=== PATIENT | female | born 2000 | race Hispanic/Latino ===

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

== ENCOUNTER 2021-07-26 20:20 | Emergency (ER) | payer MEDICAID ==
[~2021-07-26] VITALS: Ht 154.9 cm; Wt 118.9 kg
[2021-07-26 20:21] VITALS: BP 78/127
[2021-07-26 20:53] LABS: BASOPHILS % (AUTO) 0.7 % (0.0-5.0); EOSINOPHILS % (AUTO) 1.4 % (0.0-8.0); HEMATOCRIT 35.7 % (36-48); LYMPHOCYTES % (AUTO) 32.1 % (21.0-51.0); MEAN CORPUSCULAR HEMOGLOBIN 25.1 pg (27.0-33.0); MEAN CORPUSCULAR HGB CONC 30.8 g/dL (32.0-36.0); MEAN CORPUSCULAR VOLUME 81.5 fL (80-100); MONOCYTES % (AUTO) 8.6 % (3.0-13.0); PLATELET COUNT (AUTO) 290 K/uL (130-400); RED BLOOD CELL COUNT(AUTO) 4.38 MIL/uL (4.00-5.50); RED CELL DISTRIBUTION WIDTH 13.4 % (11.0-15.5); WHITE BLOOD COUNT (AUTO) 5.9 K/uL (4.8-10.8)
[2021-07-26] MEDS ORDERED: PROMETHAZINE HCL 25 MG/ML 1ML AMPULE IM ONE (21:00)
[2021-07-26] MEDS ORDERED: CYCLOBENZAPRINE HCL 10 MG TABLET PO ONE (21:00)
[2021-07-26] MEDS ORDERED: 0.9% NACL 500ML IV.SOLN 500 ML IV SCH (21:00)
[2021-07-26] MEDS ORDERED: KETOROLAC 30MG VIAL (30MG/ML) IV ONE (21:00)
[2021-07-26 21:01] LABS: CREATININE 0.6 mg/dL (0.5-1.5); POTASSIUM 3.8 mmol/L (3.5-5.1)
[2021-07-26 21:06] LABS: ALBUMIN 3.6 g/dL (3.5-5.0); BILIRUBIN,TOTAL 0.1 mg/dL (0.2-1.0); TOTAL PROTEIN, SERUM 7.5 g/dL (6.0-8.3)
[2021-07-26] MEDS ORDERED: NAPR-1180 PO (21:46)
[2021-07-26] MEDS ORDERED: RIZA10TA23 PO (21:46)
[2021-07-26] MEDS ORDERED: CYCL10TA16 PO (21:46)
== END 2021-07-26 22:06 | disposition home or self-care (01) ==
LOC: EDH 20:20
DX: G43.109 Migraine with aura, not intractable, without status migrainosus (principal); Z79.1 Long term (current) use of non-steroidal anti-inflammatories (NSAID)
CPT/HCPCS: 36415; 80053; 81025; 85025; 96372; 96374; 99284; J1885; J2550; J7040

== ENCOUNTER 2021-09-23 16:09 | Emergency (ER) | payer MEDICAID ==
[~2021-09-23] VITALS: Ht 154.9 cm; Wt 71.7 kg
[~2021-09-23 16:09] MED LIST: CYCL10TA16 PO; NAPR-1180 PO; RIZA10TA23 PO
[2021-09-23 16:51] LABS: APPEARANCE,URINE Clear (CLEAR); BILIRUBIN,URINE Negative (NEGATIVE); COLOR,URINE Yellow (YELLOW); GLUCOSE, URINE (UA) 500 mg/dL (NEGATIVE); KETONES,URINE Negative (NEGATIVE); LEUKOCYTE ESTERASE ,URINE Trace (NEGATIVE); NITRATE,URINE Negative (NEGATIVE); OCCULT BLOOD,URINE Negative (NEGATIVE); PH,URINE 6.5 (5.0-8.0); PROTEIN,URINE Negative (NEGATIVE)
[2021-09-23 16:58] LABS: HCG,QUAL RESULT NEGATIVE (NEGATIVE)
[2021-09-23] MEDS ORDERED: ONDANSETRON 4MG TABLET PO ONE (17:00)
[2021-09-23] MEDS ORDERED: DICYCLOMINE HCL 10 MG/5 ML ML PO ONE (17:00)
[2021-09-23] MEDS ORDERED: FAMOTIDINE 20MG TAB PO ONE (17:00)
[2021-09-23] MEDS ORDERED: MAG/ALUM/SIMETH 30 ML UDCUP PO ONE (17:00)
[2021-09-23] MEDS ORDERED: LIDOCAINE HCL 2% VISCOUS 15 ML UDCUP PO ONE (17:00)
[2021-09-23 17:06] LABS: BACTERIA,URINE Few /HPF (None Seen); MUCUS,URINE Few LPF (None Seen); SQUAMOUS EPITHELIAL CELL,UR Many /HPF (0-2)
[2021-09-23 17:17] LABS: BASOPHILS % (AUTO) 0.3 % (0.0-5.0); HEMATOCRIT 40.3 % (36-48); LYMPHOCYTES % (AUTO) 24.2 % (21.0-51.0); MEAN CORPUSCULAR VOLUME 78.3 fL (80-100); MONOCYTES % (AUTO) 6.7 % (3.0-13.0); NEUTROPHILS % (AUTO) 67.5 % (40.0-77.0); PLATELET COUNT (AUTO) 328 K/uL (130-400); RED BLOOD CELL COUNT(AUTO) 5.15 MIL/uL (4.00-5.50); RED CELL DISTRIBUTION WIDTH 15.4 % (11.0-15.5); WHITE BLOOD COUNT (AUTO) 7.3 K/uL (4.8-10.8)
[2021-09-23] MEDS ORDERED: LIDOCAINE HCL-MPF 1% 2ML VIAL ONE (17:23)
[2021-09-23] MEDS ORDERED: CEFTRIAXONE 1G VIAL ONE (17:23)
[2021-09-23] MEDS ORDERED: CEFTRIAXONE 1G VIAL IM ONE (17:30)
[2021-09-23 17:32] LABS: CREATININE 0.7 mg/dL (0.5-1.5); POTASSIUM 3.9 mmol/L (3.5-5.1)
[2021-09-23 17:36] LABS: ALBUMIN 4.4 g/dL (3.5-5.0); BILIRUBIN,TOTAL 0.1 mg/dL (0.2-1.0); TOTAL PROTEIN, SERUM 8.6 g/dL (6.0-8.3)
[2021-09-23 17:44] VITALS: BP 149/89
[2021-09-23] MEDS ORDERED: LIDOCAINE HCL-MPF 1% 2ML VIAL IV SCH (18:00)
[2021-09-23] MEDS ORDERED: DICY20TA2 PO (18:01)
[2021-09-23] MEDS ORDERED: FAMO-136 PO (18:01)
[2021-09-23] MEDS ORDERED: CEPH500B PO (18:01)
== END 2021-09-23 18:10 | disposition home or self-care (01) ==
LOC: EDH 16:09
DX: K29.70 Gastritis, unspecified, without bleeding (principal); N39.0 Urinary tract infection, site not specified; R03.0 Elevated blood-pressure reading, without diagnosis of hypertension
CPT/HCPCS: 36415; 76705; 80053; 81001; 81025; 83690; 85025; 96372; 99284; J0696; J3490; Q0162

== ENCOUNTER 2022-03-13 08:47 | Emergency (ER) | payer MEDICAID ==
[~2022-03-13] VITALS: Ht 154.9 cm; Wt 72.6 kg
[~2022-03-13 08:47] MED LIST changes: +CEPH500B PO; +DICY20TA2 PO; +FAMO-136 PO
[2022-03-13] MEDS ORDERED: IBUPROFEN 800 MG TAB ONE (09:04)
[2022-03-13 09:08] LABS: APPEARANCE,URINE CLEAR (CLEAR); BILIRUBIN,URINE NEGATIVE (NEGATIVE); COLOR,URINE LIGHT-YELLOW (YELLOW); GLUCOSE, URINE (UA) 30 mg/dL (NEGATIVE); KETONES,URINE 10 mg/dL (NEGATIVE); LEUKOCYTE ESTERASE ,URINE 250 Leu/uL (NEGATIVE); NITRATE,URINE NEGATIVE (NEGATIVE); OCCULT BLOOD,URINE NEGATIVE (NEGATIVE); PH,URINE 5.5 (5.0-8.0); PROTEIN,URINE 20 mg/dL (NEGATIVE); UROBILINOGEN,URINE 0.2 mg/dL (0.2-1.0)
[2022-03-13 09:22] LABS: HCG,QUALITATIVE URINE NEGATIVE (NEGATIVE)
[2022-03-13 09:25] LABS: BACTERIA,URINE RARE /HPF (None Seen); MUCUS,URINE RARE LPF (None Seen); RBC,URINE 0-1 /HPF (0-1); SQUAMOUS EPITHELIAL CELL,UR FEW /HPF (0-2)
[2022-03-13] MEDS ORDERED: IBUPROFEN 800 MG TAB PO ONE (09:30)
[2022-03-13] MEDS ORDERED: CEFU500T67 PO (09:32)
[2022-03-13] MEDS ORDERED: ONDA-104 PO (09:32)
[2022-03-13] MEDS ORDERED: IBUP-1493 PO (09:32)
[2022-03-13] MEDS ORDERED: OSEL75 PO (09:33)
[2022-03-13] MEDS ORDERED: 0.9%NACL 1000ML 1,000 ML IV ONE (10:00)
[2022-03-13] MEDS ORDERED: CEFTRIAXONE 1G VIAL IVP ONE (10:00)
[2022-03-13 11:50] VITALS: BP 101/52
== END 2022-03-13 11:51 | disposition home or self-care (01) ==
LOC: EDH 08:47
DX: J10.1 Influenza due to other identified influenza virus with other respiratory manifestations (principal); N39.0 Urinary tract infection, site not specified; Z20.822 Contact with and (suspected) exposure to COVID-19; Z79.899 Other long term (current) drug therapy
CPT/HCPCS: 99285; 96374; 71045; 87635; 96361; 87088; 87804 ×2; 81001; 81025; C9803; J7030; J0696